=== PATIENT | male | born 1940 | race Caucasian/White ===

== ENCOUNTER → 2016-10-06 | Outpatient (CLI) | payer OTHER, MEDICARE ==
[~2016-10-06] MED LIST: ASCA500 PO; ASPI81CH2 PO; CHOLINE PO; CLB200 PO; COEN150C PO; DTR/5 PO; EFFSR75 PO; EZET10TA41 PO; EZET10TA63 PO; FLAX10007 PO; FLM4 PO; GLUC10007 PO; KETO10TA PO; METO50TA7 PO; MULT-506 PO; MULT-655 PO; OMEG10007 PO; OMEP40CA41 PO; OXYC-57 PO; OXYSR10 PO; SIMV40TA2 PO; TRAM-10 PO; VENL150C56 PO
--- NOTE | 2016-10-06 13:23 | DIAGNOSTIC IMAGING REPORT ---
MRI THE RIGHT SHOULDER NO CONTRAST CLINICAL HISTORY: Right shoulder pain. Possible rotator cuff tear COMPARISON STUDY: Outside dimension radiographic study dated 09/21/2016 FINDINGS: Imaging was performed the paracoronal, sagittal, and axial planes. There are small joint effusion. There is a small amount of fluid within the subcoracoid bursa. The bicipital tendon appears within normal limits. There are mild osteoarthritic changes present within the glenohumeral joint. No labral tears are visualized on this nonarthrographic study. Degenerative changes are present within the AC joint. There is a full-thickness tear of the supra spinous tendon. There is no significant tendinous retraction. IMPRESSION: Full-thickness supraspinatus tear. Electronically signed by: Ricco King M.D. 10/06/2016 1:22 PM Dictated Date/Time: 10/06/2016 1:18 PM
== END | disposition home or self-care (01) ==
LOC: C.MRIBC 12:14
PROVIDERS: ATTEND Orthopaedic Surgery
DX: Z01.810 Encounter for preprocedural cardiovascular examination (principal); Z01.812 Encounter for preprocedural laboratory examination; M25.511 Pain in right shoulder; M75.101 Unspecified rotator cuff tear or rupture of right shoulder, not specified as traumatic; M75.82 Other shoulder lesions, left shoulder

== ENCOUNTER → 2016-10-06 | Outpatient (CLI) | payer OTHER, MEDICARE ==
[2016-10-06 17:01] LABS: BASO % 0.2 %; BASO ABS # 0.02 K/uL (0-0.2); COMPLETE YES; EOS % 2.2 %; HEMATOCRIT 41.3 % (42-52); IG% 0.5 %; LYMPH % 16.2 %; MEAN CELL VOLUME 89.4 fL (80-100); MEAN CORPUSCULAR HEMOGLOBIN 31.6 pg (25-34); MEAN CORPUSCULAR HGB CONC 35.4 g/dl (32-36); MEAN PLATELET VOLUME 9.8 fL (7.4-10.4); MONO % 8.5 %; NEUT % 72.4 %; PLATELET COUNT 167 K/uL (130-400); RED BLOOD COUNT 4.62 M/uL (4.7-6.1); WHITE BLOOD COUNT 9.89 K/uL (4.8-10.8)
[2016-10-06 17:20] LABS: BLOOD UREA NITROGEN 34 mg/dl (7-18); BUN/CREATININE RATIO 34.5 (10-20); CALCIUM 8.9 mg/dl (8.5-10.1); CARBON DIOXIDE 29 mmol/L (21-32); CHLORIDE 109 mmol/L (98-107); CREATININE 0.99 mg/dl (0.60-1.40); GLUCOSE 102 mg/dl (70-99); SODIUM 145 mmol/L (136-145)
== END | disposition home or self-care (01) ==
LOC: C.CPL 16:26
PROVIDERS: ATTEND Orthopaedic Surgery
DX: Z01.810 Encounter for preprocedural cardiovascular examination (principal); Z01.812 Encounter for preprocedural laboratory examination; M75.82 Other shoulder lesions, left shoulder

== ENCOUNTER → 2016-10-21 | Day surgery (SDC) | payer OTHER, MEDICARE ==
[2016-10-11 09:44] VITALS: Ht 188 cm; Wt 93.6 kg
[~2016-10-21] VITALS: Ht 188 cm; Wt 93.6 kg
[~2016-10-21] MED LIST changes: +ATROPINE SULFATE 0.1 MG/ML 5ML SYR IV PRN; +BUPIVACAINE/EPINEPHRINE 0.25% 1:200,000 30 ML VIAL ONE; +CEFAZOLIN 2000 MG/60 ML D5W IV SCH; -CLB200 PO; +DEXAMETHASONE SOD INJ 4 MG/ML VIAL ONE; -EFFSR75 PO; -EZET10TA41 PO; +EpHEDrine SULFATE 50MG/5ML SYR ONE; +EpINEphrine INJ 1MG/ML AMP 1 MG/ML AMP ONE; +FENTANYL CITRATE INJ 50 MCG/1 ML 2 ML VIAL IV PRN; +FENTANYL CITRATE INJ 50 MCG/1 ML 2 ML VIAL ONE; +KETOROLAC TROMETHAMINE 30 MG/ML VIAL IV. PRN; +LABETALOL HCL IV 5 MG/ML 20ML IV PRN; +LACTATED RINGER'S 1000ML 1,000 ML IV SCH; +LIDOCAINE HCL 2% 2 ML VIAL (20MG/ML) ONE; +MIDAZOLAM HCL 1 MG/ML 2ML VIAL ONE; +ONDANSETRON INJ 2 MG/ML 2 ML VIAL IV PRN; +ONDANSETRON INJ 2 MG/ML 2 ML VIAL ONE; +OXYCODONE/ACETAMINOPHEN 5-325 TAB PO PRN; -OXYSR10 PO; +PROPOFOL IV EMULSION 10 MG/ML 20 ML VIAL IV ONE; +ROPIVACAINE 0.5% 5 MG/ML 30 ML VIAL ONE; +SODIUM CHLORIDE 0.9% 1000ML 1,000 ML IV SCH
--- NOTE | 2016-10-21 11:24 | History & Physical Bridge Note ---
H&P Re-Evaluation Bridge Note: I have examined the patient, reviewed the History & Physical and in the interval since the performance of the History & Physical I have noted the following changes of clinical significance: No changes noted
--- NOTE | 2016-10-21 14:57 | Discharge Instructions-SurgCtr ---
Discharge Instructions Date of Service Oct 21, 2016. Visit Reason for Visit: Right Shoulder Full Thickness Rotator Cuff Tear Discharge Discharge Diagnosis / Problem: SAME ABOVE Discharge Goals Goal(s): Decrease discomfort, Improve function Medications Stopped Medications Name(s): Fish oil stopped for several days Restart Stopped Medication(s): MAY RESTART 10/21/2016 Activity Recommendations Activity Limitations: as noted below Lifting Limitations: until after follow-up appointment Exercise/Sports Limitations: until after follow-up appointment Shower/Bathe: tomorrow Driving or Machine Use: UNTIL AFTER FOLLOW UP Anesthesia . Post Anesthesia Instructions: If you have had General Anesthesia or IV Sedation: * Do not drive today. * Resume driving when surgeon permits. * Do not make important decisions or sign legal documents today. * Call surgeon for: 1. Temperature elevations greater than 101 degrees F. 2. Uncontrollable pain. 3. Excessive bleeding. 4. Persistent nausea and vomiting. 5. Medication intolerance (nausea, vomiting or rash). * For nausea and vomiting use only clear liquids such as: tea, soda, bouillon until nausea subsides, then gradually increase diet as tolerated. * If you have any concerns or questions, call your surgeon's office. If physician is unavailable and it is an emergency, call 911 or go to the nearest emergency room. . Instructions / Follow-Up Instructions / Follow-Up MEDICATIONS: * Resume previous medications unless instructed otherwise by your surgeon. * Always take pain medication on a full stomach or with food to avoid upset stomach. * Do not drink alcohol or drive while taking narcotics. * Ibuprofen or Tylenol may be taken if narcotic not needed. SPECIAL CARE INSTRUCTIONS: __ None _X_ Keep extremity elevated and iced x 48 hours; apply ice 20-30 minutes 8-10 times/day. May remove at night. __ Sling __24 hrs/day __ Remove at night _X_ Shoulder Immobilizer (MAY REMOVE AFTER 48 HOURS ONLY TO SHOWER AND FOR THERAPY) _X_ 24 hrs/day __ Remove at night _X_ Dressing __ Maintain until seen in office, may shower with plastic over site _X_ Remove dressings in 24-48 hours and then may shower _X Cover incisions with band-aids after showering __ Do not remove steri-strips Call physician if chills or temperature rises above 102 degrees or pain unrelieved by prescribed pain medications at . . Diet Recommendations Home Diet: no limitations Fluid Restriction: None Procedures Procedures Performed: Right Shoulder Arthroscopy, Large Rotator Cuff Repair, Acromioplasty, Biceps Tenodesis Pending Studies Studies pending at discharge: no Work Instructions Return To Work: after follow-up Lifting Limitations: NO LIFTING WITH RIGHT ARM Medical Emergencies . Who to Call and When: Medical Emergencies: If at any time you feel your situation is an emergency, please call 911 immediately. . Non-Emergent Contact Non-Emergency issues call your: Primary Care Provider Call Non-Emergent contact if: you have a fever, temperature is above 101.5 . . "Provider Documentation" section prepared by Luis Fernando Brown. .
[2016-10-21 15:30] VITALS: TEMP 36.4
--- NOTE | 2016-10-21 15:40 | [facility] Post Operative Brief Note ---
Immediate Operative Summary Operative Date Oct 21, 2016. Pre-Operative Diagnosis Right Shoulder Rotator Cuff Tear Post-Operative Diagnosis Same Procedure(s) Performed Right Shoulder Arthroscopy, Large Rotator Cuff Repair, Acromioplasty, Biceps Tenodesis Surgeon Dr. Man Dementia Program Director Surgeon(s) Jaime Brown PA-C Estimated Blood Loss 5 ml Findings as above Specimens None Complication(s) None Disposition Recovery Room / PACU
[2016-10-21 16:00] VITALS: BP 116/70; PULSE 69; O2SAT 96
--- NOTE | 2016-10-21 16:00 | Anesthesia Progress Nt - [facility] ---
Anesthesia Post Op Note Date & Time Oct 21, 2016 at 16:00 Vital Signs Pain Intensity: 0 Vital Signs Past 12 Hours Date Time Temp Pulse Resp B/P (MAP) Pulse Ox O2 Delivery O2 Flow Rate FiO2 10/21/16 15:30 36.4 67 18 125/68 (87) 96 Room Air 10/21/16 15:21 71 16 125/74 97 10/21/16 15:19 36.4 10/21/16 15:17 70 24 97 10/21/16 15:17 72 24 10/21/16 15:15 124/72 10/21/16 15:12 80 14 100 10/21/16 15:12 75 14 10/21/16 15:11 116/89 10/21/16 15:07 72 16 10/21/16 15:07 72 16 100 10/21/16 15:05 137/74 10/21/16 15:02 71 13 100 10/21/16 15:02 73 13 10/21/16 15:00 131/78 10/21/16 14:57 64 11 10/21/16 14:57 64 11 95 10/21/16 14:56 36.3 66 16 136/78 99 Diffusion Mask 8 10/21/16 13:06 0 10/21/16 13:01 72 16 98 10/21/16 13:01 72 10/21/16 13:00 123/79 10/21/16 12:56 71 15 97 10/21/16 12:56 71 10/21/16 12:55 130/85 10/21/16 12:51 79 10/21/16 12:51 80 16 142/92 99 10/21/16 12:46 68 15 98 10/21/16 12:46 68 10/21/16 12:45 124/78 10/21/16 12:44 136/83 10/21/16 12:43 70 16 136/83 (100) 97 Oxymask 4 10/21/16 12:41 64 0 10/21/16 12:36 61 0 10/21/16 12:31 58 0 10/21/16 12:26 61 0 10/21/16 12:21 59 12 10/21/16 12:21 12 10/21/16 11:29 36.9 63 16 130/80 (97) 96 Room Air Notes Mental Status: alert / awake / arousable, participated in evaluation Pt Amnestic to Procedure: Yes Nausea / Vomiting: adequately controlled Pain: adequately controlled Airway Patency, RR, SpO2: stable & adequate BP & HR: stable & adequate Hydration State: stable & adequate Anesthetic Complications: no major complications apparent
--- NOTE | 2016-10-21 22:47 | OPERATIVE REPORT ---
DATE OF OPERATION: 10/21/2016 PREOPERATIVE DIAGNOSIS: Large traumatic rotator cuff tear of the right shoulder. POSTOPERATIVE DIAGNOSIS: Same. PROCEDURE: Right shoulder diagnostic arthroscopy with extensive debridement, acromioplasty, large rotator cuff repair, and arthroscopic biceps tenodesis. SURGEON: Dr. Ritesh Man. TOOL CRIB MANAGER: Benjmain Brown PA-C, whose assistance was necessary for positioning of the arm and helping with instrumentation. ANESTHESIA: General with a right interscalene nerve block. COMPLICATIONS: None. CONDITION: Stable to PACU. INDICATIONS: River is a pleasant 76-year-old male who has been having a 2-month history of right shoulder pain. It is rather debilitating pain. MRI and clinical examination were diagnostic for a large rotator cuff tear and biceps tendinopathy. After failing conservative treatment, he elected to undergo arthroscopy. On 10/21/2016, he arrived at [facility] for the above procedure. He was seen in the preoperative holding area and the operative extremity was identified and signed. He was given a preoperative antibiotic and a right interscalene nerve block. He was taken back to the operating room, laid on the table in supine position, and put under general anesthesia. He was then put into the beachchair position. The right shoulder was prepped and draped in sterile fashion. Timeout was done. The patient and the operative extremity was properly identified. A scope was introduced in the posterior portal. Diagnostic arthroscopy showed no cartilage damage to the humeral head or the glenoid. There was significant fraying of the labrum. The biceps tendon was very frayed. There was a little fraying of the upper border of the subscapularis but there were no tears. There was a tear of the entire supraspinatus and superior half of the infraspinatus. The remainder of the infraspinatus and the teres minor were intact. An anterior portal was made. A shaver was used to do a debridement of some of the intraarticular structures and the biceps tendon was arthroscopically tenotomized. The scope was then put into the subacromial space. A lateral portal was made. A shaver was used to do a complete subacromial and subdeltoid bursectomy. An ablator was used to tease the coracoacromial ligament off the undersurface of the acromion and a 5-0 mateus was used to complete an acromioplasty of a Bigliani type 2 acromion. A shaver was used to remove any excess debris and attention was turned to the rotator cuff. An additional anterolateral portal was made. Jessica cannulas were placed in each of the lateral portals. The greater tuberosity was prepared with a ring curette and a microfracture. The rotator cuff was then fixed with an Arthrex suspension bridge configuration with three 4.75 mm BioComposite SwiveLock suture anchors placed medially and three anchors placed laterally. This gave a nice transosseous equivalent suture bridge repair. Multiple pictures were taken. The long head of the biceps tendon was tagged with a FiberLink suture and attached to the anterior lateral SwiveLock suture anchor. This provided an arthroscopic biceps tenodesis. A shaver was used to remove any excess debris. The scope was placed back into the glenohumeral joint and the articular margins of the rotator cuff had been restored. Arthroscopic instrument removed from the shoulder. Portal sites were closed with 3-0 nylon. He was then placed in a soft dressing and abduction arm sling. He was then extubated, transferred to a litter and taken to the postanesthesia care unit in stable condition and tolerated the procedure well. I attest to the content of the Intraoperative Record and any orders documented therein. Any exception s are noted below.
== END | disposition home or self-care (01) ==
LOC: X.SURG 10:34
PROVIDERS: ATTEND Orthopaedic Surgery
DX: M75.100 Unspecified rotator cuff tear or rupture of unspecified shoulder, not specified as traumatic (principal); I10 Essential (primary) hypertension

== ENCOUNTER → 2017-06-20 | Outpatient (CLI) | payer OTHER, MEDICARE ==
[~2017-06-20] MED LIST changes: +ASPI-435 PO; -ASPI81CH2 PO; -ATROPINE SULFATE 0.1 MG/ML 5ML SYR IV PRN; -BUPIVACAINE/EPINEPHRINE 0.25% 1:200,000 30 ML VIAL ONE; -CEFAZOLIN 2000 MG/60 ML D5W IV SCH; -CHOLINE PO; -DEXAMETHASONE SOD INJ 4 MG/ML VIAL ONE; -EZET10TA63 PO; -EpHEDrine SULFATE 50MG/5ML SYR ONE; -EpINEphrine INJ 1MG/ML AMP 1 MG/ML AMP ONE; -FENTANYL CITRATE INJ 50 MCG/1 ML 2 ML VIAL IV PRN; -FENTANYL CITRATE INJ 50 MCG/1 ML 2 ML VIAL ONE; -KETO10TA PO; -KETOROLAC TROMETHAMINE 30 MG/ML VIAL IV. PRN; -LABETALOL HCL IV 5 MG/ML 20ML IV PRN; -LACTATED RINGER'S 1000ML 1,000 ML IV SCH; -LIDOCAINE HCL 2% 2 ML VIAL (20MG/ML) ONE; -METO50TA7 PO; +METO50TA8 PO; -MIDAZOLAM HCL 1 MG/ML 2ML VIAL ONE; -MULT-506 PO; -MULT-655 PO; -ONDANSETRON INJ 2 MG/ML 2 ML VIAL IV PRN; -ONDANSETRON INJ 2 MG/ML 2 ML VIAL ONE; -OXYC-57 PO; -OXYCODONE/ACETAMINOPHEN 5-325 TAB PO PRN; -PROPOFOL IV EMULSION 10 MG/ML 20 ML VIAL IV ONE; -ROPIVACAINE 0.5% 5 MG/ML 30 ML VIAL ONE; -SODIUM CHLORIDE 0.9% 1000ML 1,000 ML IV SCH; -TRAM-10 PO
[2017-06-20 13:04] LABS: BASO % 0.4 %; BASO ABS # 0.03 K/uL (0-0.2); EOS % 2.4 %; HEMATOCRIT 40.6 % (42-52); HEMOGLOBIN 14.3 g/dL (14.0-18.0); IG# 0.03 K/uL (0.00-0.02); LYMPH % 19.7 %; LYMPH ABS # 1.62 K/uL (1.2-3.4); MEAN CELL VOLUME 88.3 fL (80-100); MEAN CORPUSCULAR HEMOGLOBIN 31.1 pg (25-34); MEAN CORPUSCULAR HGB CONC 35.2 g/dl (32-36); MONO % 8.9 %; MONO ABS # 0.73 K/uL (0.11-0.59); NEUT % 68.2 %; PLATELET COUNT 184 K/uL (130-400); RED CELL DISTRIBUTION WIDTH CV 13.4 % (11.5-14.5); RED CELL DISTRIBUTION WIDTH SD 43.5 fL (36.4-46.3); WHITE BLOOD COUNT 8.21 K/uL (4.8-10.8)
[2017-06-20 13:13] LABS: INR 1.1 (0.9-1.1)
[2017-06-20 14:06] LABS: BLOOD UREA NITROGEN 25 mg/dl (7-18); CALCIUM 9.3 mg/dl (8.5-10.1); CARBON DIOXIDE 27 mmol/L (21-32); CREATININE 1.03 mg/dl (0.60-1.40); GLUCOSE 92 mg/dl (70-99); POTASSIUM 4.2 mmol/L (3.5-5.1); SODIUM 140 mmol/L (136-145)
== END | disposition home or self-care (01) ==
LOC: C.PAT 11:23
PROVIDERS: ATTEND Orthopaedic Surgery
DX: M75.121 Complete rotator cuff tear or rupture of right shoulder, not specified as traumatic (principal)

== ENCOUNTER 2017-07-08 10:30 | Inpatient (IN) | payer OTHER, MEDICARE ==
[2017-03-28 12:16] VITALS: BMI 27.0
--- NOTE | 2017-03-28 12:37 | PAT Medication Instructions ---
Service Date Mar 28, 2017. Current Home Medication List Ascorbic Acid (Vitamin C), 500 MG PO QAM Aspirin (Aspirin), 1 TAB PO HS Coenzyme Q10 (Ubidecarenone) (Co Q-10), 150 MG PO QAM Fish Oil (Buckley-3), 1 CAP PO QAM Flaxseed (Linseed) (Flax Seed Oil), 1 TAB PO QAM Glucosamine Sulfate (Glucosamine), 1,000 MG PO QAM Metoprolol Succ (Toprol Xl) (Toprol-Xl), 50 MG PO HS Omeprazole (Prilosec), 40 MG PO DAILY PRN for STOMACH Oxybutynin Chloride (Ditropan), 5 MG PO BID Simvastatin (Zocor), 40 MG PO QPM Tamsulosin HCl (Tamsulosin HCl), 0.4 MG PO HS Tramadol (Ultram), 50-100 MG PO Q8H PRN for Pain Venlafaxine Hcl (Effexor Extended Rel), 150 MG PO QAM Medication Instructions For Your Scheduled Surgery - Hold the following medications 2 weeks prior to surgery: Coenzyme Q10 (Ubidecarenone) (Co Q-10), 150 MG PO QAM Fish Oil (Buckley-3), 1 CAP PO QAM Flaxseed (Linseed) (Flax Seed Oil), 1 TAB PO QAM Glucosamine Sulfate (Glucosamine), 1,000 MG PO QAM - Hold the following medications the morning of surgery: Ascorbic Acid (Vitamin C), 500 MG PO QAM - Take the following medications the morning of surgery with a sip of water OTHERWISE NOTHING TO EAT OR DRINK AFTER MIDNIGHT: Omeprazole (Prilosec), 40 MG PO DAILY PRN for STOMACH Tramadol (Ultram), 50-100 MG PO Q8H PRN for Pain ( may take if needed up to 4 hours prior to surgery) Venlafaxine Hcl (Effexor Extended Rel), 150 MG PO QAM Oxybutynin Chloride (Ditropan), 5 MG PO BID - Take the following medications as scheduled the night before surgery: Aspirin (Aspirin 81mg), 1 TAB PO HS Metoprolol Succ (Toprol Xl) (Toprol-Xl), 50 MG PO HS Tramadol (Ultram), 50-100 MG PO Q8H PRN for Pain Simvastatin (Zocor), 40 MG PO QPM Tamsulosin HCl (Tamsulosin HCl), 0.4 MG PO HS Oxybutynin Chloride (Ditropan), 5 MG PO BID If you have any questions please call us at [phone] or [phone] or [phone]
--- NOTE | 2017-03-28 13:11 | DIAGNOSTIC IMAGING REPORT ---
TWO VIEW CHEST CLINICAL HISTORY: Preoperative examination. FINDINGS: PA and lateral chest radiographs are obtained. No prior studies are available for comparison at the time of dictation. The cardiomediastinal silhouette is unremarkable. There is atherosclerotic calcification of the thoracic aorta. The lungs and pleural spaces are clear. There is no pneumothorax. The skeletal structures are osteopenic. Degenerative change is noted throughout the thoracic spine. IMPRESSION: No active disease in the chest. Electronically signed by: Ian Morgan M.D. 03/28/2017 1:09 PM Dictated Date/Time: 03/28/2017 1:09 PM
[2017-03-28 13:17] LABS: BASO % 0.3 %; BASO ABS # 0.02 K/uL (0-0.2); EOS % 1.9 %; EOS ABS # 0.15 K/uL (0-0.5); HEMATOCRIT 41.8 % (42-52); HEMOGLOBIN 14.6 g/dL (14.0-18.0); IG# 0.06 K/uL (0.00-0.02); LYMPH % 18.9 %; LYMPH ABS # 1.51 K/uL (1.2-3.4); MEAN CORPUSCULAR HEMOGLOBIN 30.7 pg (25-34); MEAN CORPUSCULAR HGB CONC 34.9 g/dl (32-36); MEAN PLATELET VOLUME 10.1 fL (7.4-10.4); MONO % 9.1 %; MONO ABS # 0.73 K/uL (0.11-0.59); NEUT ABS # 5.52 K/uL (1.4-6.5); PLATELET COUNT 183 K/uL (130-400); RED CELL DISTRIBUTION WIDTH CV 13.4 % (11.5-14.5); RED CELL DISTRIBUTION WIDTH SD 43.6 fL (36.4-46.3); WHITE BLOOD COUNT 7.99 K/uL (4.8-10.8)
[2017-03-28 13:31] LABS: INR 1.1 (0.9-1.1); PTT PATIENT 24.3 SECONDS (21.0-31.0)
[2017-03-28 14:14] LABS: CREATININE 0.99 mg/dl (0.60-1.40); POTASSIUM 4.2 mmol/L (3.5-5.1)
[2017-05-26 10:19] VITALS: BMI 27.0
--- NOTE | 2017-07-07 17:09 | HISTORY & PHYSICAL EXAMINATION ---
DATE OF ADMISSION: 07/08/2017 CHIEF COMPLAINT: Rotator cuff arthropathy of the right shoulder. HISTORY OF PRESENT ILLNESS: River is a 77-year-old male who is about 8 months status post large right rotator cuff repair. Unfortunately, he has not done well. He has been having difficulty initiating forward elevation and felt a lot of weakness in his shoulder. X-rays have been diagnostic for cuff arthropathy of the right shoulder. After failing extensive conservative treatment, he elected to proceed with a reverse right shoulder arthroplasty. PAST MEDICAL HISTORY: Hypertension, hyperlipidemia, GERD. PAST SURGICAL HISTORY: Laminectomy, bilateral total hip arthroplasties, bilateral rotator cuff repairs and cataract. ALLERGIES: VICODIN. MEDICATIONS: Venlafaxine ER 150 mg for anxiety, tramadol 50 mg for pain, metoprolol 50 mg daily, simvastatin 40 mg daily, Zetia 10 mg daily, oxybutynin 5 mg daily, and Flomax 0.4 mg daily. SOCIAL HISTORY: He denies any tobacco, alcohol or IV drug use. FAMILY HISTORY: Denies. REVIEW OF SYSTEMS: Complains of right shoulder pain and weakness. All other pertinent review of systems are negative. PHYSICAL EXAMINATION: GENERAL: He is awake, alert and orient x3, no apparent distress. He is very pleasant. HEENT: Pupils equal, round react to light. Extraocular motion intact. Oral mucosa is pink and moist. HEART: Regular rate per radial pulse. LUNGS: Saiv symmetrically bilaterally with no audible breath sounds. ABDOMEN: Soft, nontender, nondistended. MUSCULOSKELETAL: On physical examination of his shoulder, he has about 30 degrees forward elevation, 30 degrees of abduction. He is unable to even shake my hand in the office. His radial, median, ulnar and axillary nerves were all checked and intact. He has about 2/5 muscle strength with full can test and external rotation. Negative belly press test. IMAGING DATA: X-rays of the right shoulder do show superior migration of the humeral head on the glenoid. There is also advancing arthritis. IMPRESSION: Rotator cuff arthropathy of the right shoulder. PLAN: Will proceed with a right reverse total shoulder arthroplasty. We used a [employer] comprehensive shoulder system. Postoperatively, he will be placed in an arm sling and kept overnight for observation.
[~2017-07-08] VITALS: Ht 188 cm; Wt 94.7 kg
[~2017-07-08 10:30] MED LIST changes: +ACETAMINOPHEN 500 MG TAB PO SCH; +CEFAZOLIN 2000MG IV PUSH 15 ML IV SCH; +FAMOTIDINE 20 MG TAB PO SCH; +GABAPENTIN 300 MG CAP PO SCH; +LACTATED RINGER'S 1000ML 1,000 ML IV SCH; +LACTATED RINGER'S 1000ML IV SCH; +ROPIVACAINE 0.5% 5 MG/ML 30 ML VIAL ONE; +ROPIVACAINE 5MG/ML 30 ML 150 MG, BUPIVACAINE 0.5% MPF INJ 30 ML, EpINEphrine HCL INJ 0.... INFIL SCH
[2017-07-08] MEDS ORDERED: CHIA1POW PO (11:05)
[2017-07-08 11:13] VITALS: BP 132/84; PULSE 80; TEMP 37; O2SAT 96; Ht 188 cm; Wt 94.7 kg
[2017-07-08] MEDS ORDERED: ATROPINE SULFATE 0.1 MG/ML 5ML SYR IV PRN (11:45)
[2017-07-08] MEDS ORDERED: EpHEDrine SULFATE INJ 50 MG/ML AMP IV PRN (11:45)
[2017-07-08] MEDS ORDERED: PHENYLEPHRINE 100MCG/ML 5ML SYR IV PRN (11:45)
[2017-07-08] MEDS ORDERED: HYDROmorphone INJ 1 MG/ML SYR IV PRN (11:45)
[2017-07-08] MEDS ORDERED: ONDANSETRON INJ 2 MG/ML 2 ML VIAL IV PRN ×2 (11:45→16:30)
[2017-07-08] MEDS ORDERED: FENTANYL CITRATE INJ 50 MCG/1 ML 2 ML VIAL IV PRN (11:45)
[2017-07-08] MEDS ORDERED: BACITRACIN 50000 UNIT VIAL ONE ×2 (14:00→14:04)
[2017-07-08] MEDS ORDERED: ORTHO JOINT ANESTHETIC ONE (14:03)
[2017-07-08] MEDS: TRANEXAMIC ACID INJ 1,000 MG x 2 Bags IV SCH ×2 (14:15)
[2017-07-08] MEDS ORDERED: FENTANYL CITRATE INJ 50 MCG/1 ML 2 ML VIAL ONE (15:00)
[2017-07-08] MEDS ORDERED: DEXAMETHASONE SOD INJ 4 MG/ML VIAL ONE (15:00)
[2017-07-08] MEDS ORDERED: PROPOFOL IV EMULSION 10 MG/ML 20 ML VIAL IV ONE (15:00)
[2017-07-08] MEDS ORDERED: MIDAZOLAM HCL 1 MG/ML 2ML VIAL ONE (15:00)
[2017-07-08] MEDS ORDERED: ONDANSETRON INJ 2 MG/ML 2 ML VIAL ONE (15:00)
[2017-07-08] MEDS ORDERED: SUCCINYLCHOLINE CHLORIDE 20 MG/ML 10 ML VIAL IV ONE (15:00)
[2017-07-08] MEDS ORDERED: PHENYLEPHRINE HCL INJ 10 MG/ML VIAL ONE (15:09)
[2017-07-08] MEDS ORDERED: EpHEDrine SULFATE INJ 50 MG/ML AMP ONE (15:09)
--- NOTE | 2017-07-08 16:28 | [facility] Post Operative Brief Note ---
Immediate Operative Summary Operative Date Jul 08, 2017. Pre-Operative Diagnosis Rotator cuff arthropathy of the right shoulder Post-Operative Diagnosis Rotator cuff arthropathy of the right shoulder Procedure(s) Performed Right Reverse Total Shoulder Arthroplasty Surgeon Dr. Man Inspector Of Weights And Measures Surgeon(s) Hal Gregorio PA-C Estimated Blood Loss 250ml Findings Consistent with Post-Op Diagnosis Specimens a. right humeral head Anesthesia Type General Regional Complication(s) none Disposition Disposition: Recovery Room / PACU
[2017-07-08] MEDS ORDERED: MAGNESIUM HYDROXIDE SUSP 30 ML UDC PO PRN (16:30)
[2017-07-08] MEDS ORDERED: METOCLOPRAMIDE HCL INJ 5 MG/ML 2 ML VIAL IV PRN (16:30)
[2017-07-08] MEDS ORDERED: BISACODYL 10 MG SUPP PR PRN (16:30)
[2017-07-08] MEDS ORDERED: PANTOprazole SOD 40 MG TAB PO PRN (16:30)
[2017-07-08] MEDS ORDERED: MoRPHine SULFATE 2 MG/ML CARP IV PRN (16:30)
[2017-07-08] MEDS ORDERED: CEFAZOLIN IV 2,000 MG in DEXTROSE 5% 50ML 50 ML IV SCH (16:30)
[2017-07-08] MEDS ORDERED: SOD PHOSPHATE/SOD BIPHOSPHATE ENEMA 132 ML BTL PR PRN (16:30)
--- NOTE | 2017-07-08 17:03 | DIAGNOSTIC IMAGING REPORT ---
R SHOULDER MIN 2 VIEWS ROUTINE CLINICAL HISTORY: Post shoulder surgery COMPARISON: None. DISCUSSION: There are postsurgical changes of a reverse total right shoulder arthroplasty. There is no dislocation. There are overlying skin maximo and surgical drains. There is air within soft tissues consistent with recent surgery. There are right lower lobe pulmonary airspace opacities, likely atelectatic given history of recent surgery. A pneumonia could appear similar. IMPRESSION: 1. Postsurgical changes of a reverse total right shoulder arthroplasty 2. Right lower lobe atelectasis/consolidation Electronically signed by: Ricco King M.D. 07/08/2017 5:02 PM Dictated Date/Time: 07/08/2017 5:01 PM
--- NOTE | 2017-07-08 17:23 | Anesthesiology Progress Note ---
Anesthesia Post Op Note Date & Time Jul 08, 2017 at 17:23 Vital Signs Pain Intensity: 0 Vital Signs Past 12 Hours Date Time Temp Pulse Resp B/P (MAP) Pulse Ox O2 Delivery O2 Flow Rate FiO2 07/08/17 17:20 36.6 72 17 121/71 94 Nasal Cannula 2 07/08/17 17:10 76 19 125/76 93 Nasal Cannula 2 07/08/17 17:00 70 14 121/81 99 Oxymask 10 07/08/17 16:50 77 18 115/74 98 Oxymask 10 07/08/17 16:43 36.2 81 12 134/78 98 Oxymask 10 07/08/17 11:13 37 80 18 132/84 96 Room Air Notes Mental Status: alert / awake / arousable, participated in evaluation Pt Amnestic to Procedure: Yes Nausea / Vomiting: adequately controlled Pain: adequately controlled Airway Patency, RR, SpO2: stable & adequate BP & HR: stable & adequate Hydration State: stable & adequate Anesthetic Complications: no major complications apparent
[2017-07-08 17:45] VITALS: BP 123/71; TEMP 36.4; O2SAT 97
[2017-07-08 18:23] VITALS: BP 129/74; PULSE 71; TEMP 36.7; O2SAT 95
[2017-07-08 18:45] VITALS: BP 111/66; PULSE 74; TEMP 36.4; O2SAT 97
[2017-07-08] MEDS: KETOROLAC TROMETHAMINE 15 MG/ML VIAL IV. SCH ×2 (19:46→23:58)
[2017-07-08] MEDS: OXYCODONE HCL IR 5 MG TAB (IMMEDIATE RELEASE) PO PRN (20:02)
[2017-07-08] MEDS ORDERED: SIMVASTATIN 40 MG TAB PO SCH (21:00)
[2017-07-08] MEDS ORDERED: ASPIRIN 81 MG ECTAB PO SCH (21:00)
[2017-07-08] MEDS ORDERED: METOPROLOL SUCC 50MG EXT REL TAB PO SCH (21:00)
[2017-07-08] MEDS ORDERED: SENNA 8.6 MG TAB PO SCH (21:00)
[2017-07-08] MEDS ORDERED: TAMSULOSIN HCL 0.4 MG CAP PO SCH (21:00)
[2017-07-08 21:10] VITALS: BP 121/73; PULSE 80; TEMP 36.7; O2SAT 93
[2017-07-08] MEDS: DOCUSATE SODIUM 100 MG CAP PO SCH (21:17)
[2017-07-08] MEDS: OXYBUTYNIN CHLORIDE 5 MG TAB PO SCH (21:18)
[2017-07-08] MEDS: CEFAZOLIN IV 2,000 MG in SYRINGE 0 ML IV SCH (21:39)
[2017-07-08] MEDS: ACETAMINOPHEN IV 1,000 MG in EMPTY BAG 0 ML IV SCH (21:39)
--- NOTE | 2017-07-08 21:40 | OPERATIVE REPORT ---
DATE OF OPERATION: 07/08/2017 PREOPERATIVE DIAGNOSIS: Cuff arthropathy of the right shoulder. POSTOPERATIVE DIAGNOSIS: Same. PROCEDURE: Right reverse total shoulder arthroplasty. SURGEON: Ritesh Man DO. FOIL CUTTER: Hal Gregorio PA-C, whose assistance was necessary for retraction and closure. ANESTHESIA: General with a right interscalene nerve block. COMPLICATIONS: None. CONDITION: Stable to PACU. INDICATIONS: River is a pleasant 77-year-old male who I did a rotator cuff repair on about 6-8 months ago. He had a massive cuff tear. Unfortunately, he did not do well postoperatively. He is still unable to raise his arm. He has significant weakness. X-rays showed advanced arthritis and superior migration of the humeral head. After failing conservative treatment, he elected to undergo a reverse right shoulder arthroplasty. OPERATION AND FINDINGS: On 07/08/2017, he arrived at [facility] for the above procedure. He was seen in the preoperative holding area and the operative extremity was identified and signed. He was given a preoperative antibiotic and a right interscalene nerve block. He was taken back to the operating room, laid on the table in supine position and put under general anesthesia. He was then put into the beach chair position. The right shoulder was prepped and draped in sterile fashion. Time-out was done. The patient and operative extremity was properly identified. A deltopectoral approach was used. Dissection was taken down through the fascia and the anterior shoulder was exposed. The long head of biceps had been previously tenotomized. The subscapularis was tenotomized off the lesser tuberosity with a centimeter of cuff tissue remaining. The proximal humerus was exposed. The supraspinatus and infraspinatus were completely torn and retracted. Sequential reaming of the humerus up to a size 15 reamer was done. Off the final reamer, a proximal humeral resection guide was placed and the proximal humerus was resected at 135 degrees of inclination and 20 degrees of retroversion. The head was removed and the glenoid was exposed. Time was spent doing a complete circumferential capsular and labral release. The Biomet glenoid guide was then placed in the inferior portion of the glenoid and a guide pin was placed at 10 degrees of inclination. A 25 mm mini baseplate was then reamed and the final baseplate was then impacted into place. A single central screw was placed followed by superior and inferior locking screws. A 41 mm eccentric glenosphere was then impacted into place. The proximal humerus was then exposed. Sequential broaching up to a size 15 broach was done. A standard humeral tray was trialed, the shoulder was reduced, brought through a full range of motion and felt to be stable. The shoulder was then dislocated. The trials were removed. The final size 15 mini pressfit stem was then impacted into place. The standard humeral bearing was snapped in a standard humeral tray and the ring lock mechanism was engaged. The humeral tray was then impacted onto the humeral stem. The shoulder was then reduced, brought through a full range of motion and felt to be stable. The axillary nerve was palpated. The subscapularis was then tenodesed back to the lesser tuberosity with transosseous FiberWire sutures and [id number] sutures. The surrounding soft tissues were injected with 100 mL of an orthopedic pain control cocktail. The wound was then irrigated with a total of 3 liters of normal saline solution with bacitracin. A drain was placed. Skin was closed with 2-0 Vicryl, 3-0 V-Loc sutures and maximo. He was then placed in a soft dressing and a regular arm sling. He was then extubated, transferred to a litter and taken to the postanesthesia care unit in stable condition. He tolerated the procedure well. I attest to the content of the Intraoperative Record and any orders documented therein. Any exception s are noted below.
[2017-07-08 22:58] VITALS: BP 110/66; PULSE 65; TEMP 36.5; O2SAT 92
[2017-07-08] MEDS: POTASSIUM CHLORIDE INJ 10 MEQ in SODIUM CHLORIDE 0.9% 1000ML 1,000 ML IV SCH (23:57)
[2017-07-09] MEDS: TRANEXAMIC ACID INJ 1,000 MG x 2 Bags IV SCH ×2 (01:10)
[2017-07-09] MEDS ORDERED: NURSING DECISION MEDICATION ORDER SCH (01:30)
[2017-07-09 03:36] VITALS: BP 122/69; PULSE 73; TEMP 36.5; O2SAT 95
[2017-07-09] MEDS: CEFAZOLIN IV 2,000 MG in SYRINGE 0 ML IV SCH (05:26)
[2017-07-09] MEDS: ACETAMINOPHEN IV 1,000 MG in EMPTY BAG 0 ML IV SCH (05:27)
[2017-07-09] MEDS: KETOROLAC TROMETHAMINE 15 MG/ML VIAL IV. SCH ×2 (05:27→12:19)
[2017-07-09 07:19] LABS: HEMOGLOBIN 11.9 g/dL (14.0-18.0); MEAN CELL VOLUME 87.9 fL (80-100); MEAN CORPUSCULAR HEMOGLOBIN 30.7 pg (25-34); PLATELET COUNT 159 K/uL (130-400); RED CELL DISTRIBUTION WIDTH CV 13.3 % (11.5-14.5); RED CELL DISTRIBUTION WIDTH SD 42.4 fL (36.4-46.3); WHITE BLOOD COUNT 13.58 K/uL (4.8-10.8)
[2017-07-09 07:20] VITALS: BP 123/72; PULSE 64; TEMP 36.5; O2SAT 98
[2017-07-09 07:48] LABS: CALCIUM 8.6 mg/dl (8.5-10.1); CREATININE 1.01 mg/dl (0.60-1.40); POTASSIUM 3.9 mmol/L (3.5-5.1)
[2017-07-09] MEDS: OXYBUTYNIN CHLORIDE 5 MG TAB PO SCH (08:36)
[2017-07-09] MEDS: DOCUSATE SODIUM 100 MG CAP PO SCH (08:36)
[2017-07-09] MEDS: OXYCODONE HCL IR 5 MG TAB (IMMEDIATE RELEASE) PO PRN ×2 (08:39→12:43)
[2017-07-09] MEDS ORDERED: MULTIVITAMIN TAB PO SCH (09:00)
[2017-07-09] MEDS ORDERED: COENZYME Q10 150 MG PO SCH (09:00)
[2017-07-09] MEDS ORDERED: VENLAFAXINE HCL XR 150 MG CAPXR PO SCH (09:00)
[2017-07-09] MEDS ORDERED: FLAXSEED PO SCH (09:00)
[2017-07-09] MEDS ORDERED: ASCORBIC ACID 500 MG TAB PO SCH (09:00)
[2017-07-09] MEDS ORDERED: RXC5 PO (09:16)
--- NOTE | 2017-07-09 09:18 | Discharge Instructions ---
Discharge Instructions Date of Service Jul 09, 2017. Admission Reason for Admission: Right Shoulder Full Thickness Rotator Cuff Tear Discharge Discharge Diagnosis / Problem: Right Reverse Total Shoulder Discharge Goals Goal(s): Decrease discomfort, Improve function Activity Recommendations Activity Limitations: as noted below . Instructions / Follow-Up Instructions / Follow-Up Activity and Therapy Recommendations: * Wear your sling for 3 weeks, unless otherwise instructed. You may remove your sling to shower and to dress, but otherwise, you should be in your sling at all times, including while sleeping * The shoulder replacement is very stable and you can use your hand while in the sling * Physical Therapy should start about 3-5 days from your day of surgery. Therapy will last about 8-12 weeks * You were shown a series of exercises in the hospital. Do these exercises daily including the exercises you were shown in physical therapy. Medications: * Narcotic You will likely be sent home from the hospital with a prescription for the narcotic pain medication that worked best throughout your stay. * Other medications may be prescribed for specific circumstances. If you have any questions, please call the office at . * Resume previous home medications unless otherwise instructed Showering: You may shower 5 days from the day of surgery. Let the soapy shower water run over the maximo. Do not scrub or soak the incision. Things To Watch For: * Drainage from the incision site that occurs more than one week after your surgery. * Increased redness at the incision site. * Fever above 102 degrees Fahrenheit. * Unusual chest pain or shortness of breath. * Call [facility] at with any of the above problems Follow-Up Visit: Follow-up with Dr. Man 2 weeks after your day of surgery. An appointment was probably scheduled when you signed-up for surgery in the office. If you have any questions call Office Instructions: More detailed instructions as well as Frequently Asked Questions were provided in a folder by our office when you signed-up for surgery. Please review these instructions when you get home. If you have any further questions or concerns, please feel free to call the office at [phone] Current Hospital Diet Patient's current hospital diet: Regular Diet Discharge Diet Recommended Diet: Regular Diet Procedures Procedures Performed: Right Reverse Total Shoulder Arthroplasty Pending Studies Studies pending at discharge: no Medical Emergencies . Who to Call and When: Medical Emergencies: If at any time you feel your situation is an emergency, please call 911 immediately. . Non-Emergent Contact Non-Emergency issues call your: Surgeon Call Non-Emergent contact if: wound has increased drainage, wound has increased redness . "Provider Documentation" section prepared by Ritesh Man. .
--- NOTE | 2017-07-09 09:30 | PROGRESS NOTE ---
DATE: 07/09/2017 CHIEF COMPLAINT: Status post reverse right shoulder arthroplasty postop day #1. PROGRESS: River was seen and examined at bedside today. Overall, he is doing very well. He is sitting up reading the paper when I came in. He has some soreness in the shoulder, but it is not bad. His nerve block has completely worn off. He has no complaints. OBJECTIVE: The radial, median and ulnar nerves are checked and intact at his wrist. His axillary nerve was not checked yet. His dressing is clean and dry and his drain is to suction. He is wearing a sling as instructed. LABORATORY DATA: He has an H&H today of 11.9 and 34.0. Glucose is 128. His vital signs are all stable on room air. He is voiding on his own. X-rays postoperatively of the right shoulder show the prosthesis to be in anatomic alignment without any evidence of fracture, dislocation or loosening. IMPRESSION: Status post reverse right shoulder arthroplasty postop day #1. PLAN: At this point, he is doing well. He will be seen by physical therapy this morning for hand, wrist, elbow and pendulum exercises. The nursing staff can change the dressing, pull the drain and will discharge him to home later this morning.
--- NOTE | 2017-07-09 09:36 | DISCHARGE SUMMARY ---
DISCHARGE DIAGNOSIS: Rotator cuff arthropathy of the right shoulder. PROCEDURE: Right reverse shoulder arthroplasty on 07/08/[address] Ritesh Man. DISCHARGE INSTRUCTIONS: 1. Oxycodone 5-10 mg every 4 hours as needed for pain. 2. Vitamin C 500 mg daily. 3. Aspirin 81 mg daily. 4. Toprol 50 mg daily. 5. Ditropan 5 mg twice a day. 6. Zocor 40 mg daily. 7. Tamsulosin 0.4 mg at night. 8. Effexor 150 mg daily. 9. Continue all other over the counter vitamins and supplements. 10. Right arm sling for 3 weeks. 11. Follow up with Dr. Man in 2 weeks. 12. Call the office of Dr. Man with any questions or concerns. HOSPITAL COURSE: River is a pleasant 77-year-old male who presented to my office with a large cuff tear. He underwent rotator cuff repair about 6 months ago. Unfortunately, did not do well. He still has difficulty doing forward elevation. X-ray showed advancing cuff arthropathy. He elected to proceed with a reverse right shoulder arthroplasty. On 07/08/2017, he arrived at [facility] and underwent a reverse right shoulder arthroplasty without complications. He had a general anesthetic and a right interscalene nerve block. Postoperatively, he was placed in an arm sling and discharged to general orthopedic floor. His hospital course was uneventful. On postop day #1, his H&H was stable at 11.9 and 34.0. He was able to participate well with physical therapy, doing hand, wrist, elbow and pendulum exercises. His pain was controlled and he was subsequently discharged to home with the above instructions.
[2017-07-09] MEDS: POTASSIUM CHLORIDE INJ 10 MEQ in SODIUM CHLORIDE 0.9% 1000ML 1,000 ML IV SCH (10:00)
[2017-07-09 10:19] VITALS: BP 123/72; PULSE 64; TEMP 36.5; O2SAT 98
== END 2017-07-09 13:09 | disposition home or self-care (01) | DRG 483 ==
LOC: C.ACU 10:30 → C.3E 11:30 → ENRESERV 17:11
PROVIDERS: ADMIT Orthopaedic Surgery; ATTEND Orthopaedic Surgery
PROC: 0RRJ00Z Replacement of Right Shoulder Joint with Reverse Ball and Socket Synthetic Substitute, Open Approach (ICD-10-PCS; principal; 2017-07-08 13:40)
DX: M12.811 Other specific arthropathies, not elsewhere classified, right shoulder (principal); I10 Essential (primary) hypertension; E78.5 Hyperlipidemia, unspecified; K21.9 Gastro-esophageal reflux disease without esophagitis; Z79.82 Long term (current) use of aspirin; Z79.899 Other long term (current) drug therapy; Z98.890 Other specified postprocedural states